=== PATIENT | female | born 1995 | race African-American/Black ===

== ENCOUNTER 2025-03-22 04:32 | Emergency (ER) | payer SELFPAY ==
[2025-03-22 04:45] VITALS: BP 120/76
[2025-03-22 05:00] LABS: % Basophils 0.4 % (0-2); % Eosinophils 2.3 % (0-6); % Immature Granulocytes 0.2 % (0-0.5); % Lymphocytes 33.3 % (20.5-51.1); % Monocytes 6.4 % (1.7-9.3); % Neutrophils 57.4 % (42.2-75.2); Absolute Eosinophils 0.2 10^3/uL (0-0.7); Absolute Lymphocytes 3.1 10^3/uL (1.2-3.4); Absolute Monocytes 0.6 10^3/uL (0.1-0.6); Absolute Neutrophils 5.3 10^3/uL (1.4-6.5); Hematocrit 38.7 % (37.0-47.0); Hemoglobin 13.2 g/dL (12.0-16.0); Mean Corp Hgb Conc. 34.1 g/dL (33.0-37.0); Mean Corpuscular Hgb 31.4 pg (27.0-31.0); Mean Corpuscular Volume 91.9 fL (81.0-99.0); Mean Platelet Volume 9.6 fL (7.4-10.4); Nucleated Red Blood Cells % 0 %; Platelet Count 276 10^3/uL (130-400); Red Blood Cell Count 4.21 10^6/uL (4.20-5.40); Red Cell Dist. Width 12.9 % (11.5-14.5); White Blood Cell Count 9.3 10^3/uL (4.8-10.8)
[2025-03-22 05:16] LABS: ALT (SGPT) 12 U/L (0-35); AST (SGOT) 16 U/L (14-36); Albumin 4.7 g/dl (3.5-5.0); Alkaline Phosphatase 37 U/L (38-126); Blood Urea Nitrogen 13 mg/dl (7-17); Calcium 9.6 mg/dl (8.4-10.2); Carbon Dioxide 30 mmol/L (22-30); Chloride 108 mmol/L (98-107); Glucose 86 mg/dl (70-99); HCG, Serum Qualitative Screen Negative; Lipase 155 U/L (23-300); Potassium 3.8 mmol/L (3.5-5.1); Sodium 143 mmol/L (135-145); Total Bilirubin 0.4 mg/dl (0.2-1.3); Total Protein 7.9 g/dl (6.3-8.2); eGFR > 60.00
[2025-03-22 07:11] VITALS: BMI 25.1
[2025-03-22 07:17] VITALS: BP 148/98
--- NOTE | 2025-03-22 07:20 | ED.GENMED ---
History of Present Illness
General
Chief Complaint: Abdominal Pain
Source: patient
Exam Limitations: none
Time Seen by Provider: 03/22/25 07:06
History of Present Illness
History of Present Illness:
29yoF with a history of PCOS presenting for evaluation of abdominal pain. She has been having mild ongoing pain for the past several weeks. Pain became severe yesterday. Pain is located in the RLQ and suprapubic regions. Pain comes in waves and
is worse with movement and palpation. Pain seems to improve after having a bowel movement. She has had pain in the past which has been attributed to ovarian cysts but she has never had a pain this severe before. She currently rates her pain as a
7/10 in severity. She is otherwise asymptomatic and denies any fevers, chills, vomiting, diarrhea, dysuria, vaginal bleeding, vaginal discharge. No previous abdominal surgeries. LMP was about 2 months ago which is not usual for her.
Phy Exam
General Physical Exam
General Presentation: well appearing and no apparent distress
General age: appears stated age
General Skin: warm and dry
General Habitus: normal
General Mental: alert
ENT Exam
ENT Exam: normocephalic
Pulmonary Exam
Pulmonary Exam: no respiratory distress
Gastrointestinal Exam
Gastrointestinal Exam: soft, non distended and other (+Tenderness at McBurney's point. Abdomen soft, non-distended. No rebound or guarding.)
Neurological Exam
Neurological Exam: alert
Natalya Coma Scale
Eye Opening: Spontaneous
Verbal Response: Oriented
Motor Response: Obeys Commands
GCS Total Score: 15
Skin Exam
Skin Exam: normal color and warm/dry
Psychiatric Exam
Psychiatric Exam: normal mood/affect
Course
Orders/Labs/Results
Orders:
Orders
03/22/25 04:49
Test Result ONCE
03/22/25 04:53
Complete Blood Count/With Diff Urgent
Comprehensive Metabolic Panel Urgent
HCG, Serum Qualitative Screen Urgent
Lipase Urgent
03/22/25 07:24
CT Abd/pelvis W Iv Cont Urgent
Comment:
Reason For Exam: RLQ pain
03/22/25 07:38
Urinalysis Reflex To Culture Urgent
Date Specimen was Collected: 03/22/25
Time Specimen was Collected: 07:30
Urine Microscopic Reflex Cult Urgent
Urine Culture Urgent
LEATHA Source: U
Specimen Description:
Date Specimen was Collected: 03/22/25
Time Specimen was Collected: 07:30
Abnormal Lab Results
03/22/25 03/22/25
04:53 07:38
MCH 31.4 H pg
(27.0-31.0)
Chloride 108 H mmol/L
(98-107)
Alkaline Phosphatase 37 L U/L
(38-126)
Leukocyte Esterase Rfl 1+ A
(Negative)
Urine Bacteria (Reflex) Few A
(Negative)
Urine Albumin (Reflex) 1+ A
(Neg - Trace)
03/22/25 04:53
03/22/25 04:53
Vital Signs
Initial and Last Documented VS:
Initial Vital Signs
Temp Pulse Resp BP Pulse Ox
97.9 F 64 20 120/76 100
03/22/25 04:45 03/22/25 04:45 03/22/25 04:45 03/22/25 04:45 03/22/25 04:45
Last Documented Vital Signs
Temp Pulse Resp BP Pulse Ox
98.2 F 56 16 120/76 100
03/22/25 09:37 03/22/25 09:37 03/22/25 09:37 03/22/25 09:37 03/22/25 09:37
MDM/Problems Addressed
Differential Diagnosis Includes:
29yoF here with RLQ/suprapubic abd pain. Ongoing x several weeks, became worse yesterday. Otherwise asymptomatic. VSS. She is well appearing in no distress. No signs of peritonitis on abdominal exam. Differential diagnosis includes but is not
limited to: appendicitis, mesenteric adenitis, ovarian cyst, musculoskeletal, nonspecific abdominal pain
Initial ED plan: Abdominal labs obtained in triage which are overall unremarkable including normal white count and negative HCG. Will check UA and CT abdomen. She declines analgesics.
*Critical Care Note
Total Time (30-74mins, 75-104mins- exclusive of procedures): Not Applicable
Update Note
Update Note:
UA bland without signs of infection. CT is negative for acute findings other than mild constipation. Appendix is normal. No indication for hospitalization. Supportive care reviewed including increased fiber/fluid intake and as needed MiraLAX.
Advised follow-up with PCP and ED return precautions reviewed. Patient in agreement with plan and was discharged in stable condition.
ED Attending Note
-
Portions of this chart may have been created with voice recognition software.� Occasional wrong word or��sound alike� substitutions may have occurred due to the inherent limitations of voice recognition software.
Discharge Plan
Departure
Patient Disposition: Home (Routine Discharge)
Date of Disposition: 03/22/25
Time of Disposition: 09:19
Patient with high blood pressure during this ER visit?: Yes
Discharge Problem:
Right lower quadrant abdominal pain
Instructions: Abdominal Pain
Referrals:
[facility] [Provider Group]
UNKNOWN - PT DOES,NOT KNOW [Family Provider] -
Activity Restrictions/Additional Instructions:
Increase your fluid and fiber intake. Take Miralax 1-2x daily as needed for constipation.
Please follow-up with a family doctor. Return to the ER with any new or worsening symptoms including severe pain or fevers.
Interventions
Interventions:
*Risk Screen - Suicide Last Done: 03/22/25 04:45
*General Assessment Last Done: 03/22/25 07:11
*Neglect/Abuse Screening Last Done: 03/22/25 04:45
*ED- Fall Risk Assessment Last Done: 03/22/25 07:11
*ED COVID-19 Vaccine History Last Done: 03/22/25 07:11
*Nursing Disposition Last Done: 03/22/25 09:37
JM-Okrxes-Ajijozlxow Assessment Last Done: 03/22/25 07:11
Discharge Date and Time
Discharge Date/Time: 03/22/25 09:39
Print Language: SERBIAN
[2025-03-22 07:22] VITALS: BP 148/98
[2025-03-22 07:58] LABS: Urine Albumin 1+ (Neg - Trace); Urine Bilirubin Negative (Negative); Urine Character Clear (Clear); Urine Color Yellow; Urine Glucose Negative (Negative); Urine Ketone Negative (Negative); Urine Leukocyte 1+ (Negative); Urine Nitrite Negative (Negative); Urine Occult Blood Negative (Negative); Urine Urobilinogen Negative (Neg - 1+)
[2025-03-22 08:00] VITALS: BP 115/67
[2025-03-22 08:46] LABS: Urine Red Blood Cell 0-2 /HPF (0-2); Urine Squamous Cell >30 /LPF (Few)
[2025-03-22 08:47] LABS: Urine Bacteria Few (Negative)
[2025-03-22 08:48] LABS: Urine Mucus Moderate
[2025-03-22 09:18] VITALS: BP 120/76
[2025-03-22 09:37] VITALS: BP 120/76
--- NOTE | 2025-03-22 09:38 | EDRN ---
Reviewed discharge instructions with patient. Verbalized understanding. Ambulated with steady gait to the lobby.
== END 2025-03-22 09:39 | disposition home or self-care (01) ==
LOC: EMR 04:32
PROVIDERS: Emergency Medicine; Physician Assistant; EMERGENCY PHYSICIAN Emergency Medicine
DX: R10.31 Right lower quadrant pain (principal); R03.0 Elevated blood-pressure reading, without diagnosis of hypertension
CPT/HCPCS: 99285; 74177; 80053; 81003; 81015; 83690; 84703; 85025; 87086; Q9967